=== PATIENT | female | born 1970 | race Caucasian/White ===

== ENCOUNTER 2019-10-14 20:55 | Emergency (ER) | payer BC ==
[~2019-10-14] VITALS: Ht 167.6 cm; Wt 66.2 kg
[2019-10-14 21:36] LABS: URINE BILIRUBIN NEGATIVE (Negative); URINE BLOOD 1+ (Negative); URINE CLARITY CLEAR; URINE COLOR YELLOW; URINE GLUCOSE-RANDOM NEGATIVE (Negative); URINE KETONES NEGATIVE (Negative); URINE LEUKOCYTES-REFLEX 1+ (Negative); URINE NITRITE-REFLEX NEGATIVE (Negative); URINE PROTEIN NEGATIVE (Negative); URINE SPECIFIC GRAVITY <= 1.005 (1.005-1.030); URINE UROBILINOGEN 0.2 E.U./dl (0.2-1.0)
[2019-10-14 21:47] LABS: BACTERIA-REFLEX 1-9 Few /HPF (None Seen); CASTS None Seen /LPF (None Seen); CRYSTALS None Seen /LPF (None Seen); MUCUS None Seen strn/LPF (None Seen); SQUAMOUS 4-10 Moderate /LPF (0-3)
[2019-10-14 21:48] LABS: URINE RBC 0-2 Rare /HPF (0-2)
[2019-10-14 21:56] LABS: HEMATOCRIT 36.5 % (37.0-47.0); MCH 34.1 pg (26.0-34.0); MCHC 35.6 g/dL (28.0-37.0); MCV 95.7 fL (80.0-100.0); NUCLEATED RBCS 0 /100WBC; PLATELET COUNT* 215 thou/uL (150-400); RBC 3.81 mil/uL (4.20-5.00); RDW-CV 13.1 % (10.5-14.5); WBC 10.7 thou/uL (4.0-11.0)
[2019-10-14 22:04] LABS: CALCIUM 8.1 mg/dL (8.5-10.1); CREATININE 0.8 mg/dL (0.6-1.3); POTASSIUM 3.4 mmol/L (3.5-5.1)
[2019-10-14 22:08] LABS: ALBUMIN 3.3 g/dL (3.4-5.0); TOTAL BILIRUBIN 0.3 mg/dL (<0.1-1.0)
[2019-10-14 22:26] LABS: ABSOLUTE LYMPHOCYTES 0.2 thou/uL (0.8-5.3); ABSOLUTE MONOCYTES 0.6 thou/uL (0.0-1.2); ABSOLUTE NEUTROPHILS 9.8 thou/uL (1.6-8.1)
[2019-10-14 22:27] LABS: PLATELET ESTIMATE ADEQUATE
[2019-10-14] MEDS ORDERED: LEVAQUIN 500 M500 M8 PO (22:30)
[2019-10-14 23:07] VITALS: BP 109/66
== END 2019-10-14 23:08 | disposition home or self-care (01) ==
LOC: M.ERS 20:55
PROVIDERS: Personal Emergency Response Attendant
DX: N39.0 Urinary tract infection, site not specified (principal); Z98.890 Other specified postprocedural states

== ENCOUNTER 2019-10-15 13:08 | Inpatient (IN) | payer BC ==
[~2019-10-15] VITALS: Ht 167.6 cm; Wt 66.7 kg
[~2019-10-15 13:08] MED LIST: LEVAQUIN 500 M500 M8 PO
[2019-10-15 13:19] VITALS: BP 146/99
[2019-10-15 13:33] LABS: ABSOLUTE BASOPHILS 0.1 thou/uL (0.0-0.2); ABSOLUTE LYMPHOCYTES 1.2 thou/uL (0.8-5.3); ABSOLUTE MONOCYTES 0.8 thou/uL (0.0-1.2); ABSOLUTE NEUTROPHILS 10.6 thou/uL (1.6-8.1); BASOPHILS 0.4 %; EOSINOPHILS 0.1 %; HEMATOCRIT 38.1 % (37.0-47.0); HEMOGLOBIN 13.2 gm/dL (12.0-15.0); LYMPHOCYTES 9.5 %; MCH 33.9 pg (26.0-34.0); MCHC 34.7 g/dL (28.0-37.0); MCV 97.7 fL (80.0-100.0); MONOCYTES 6.5 %; MPV 8.2 fl. (7.2-11.1); NUCLEATED RBCS 0 /100WBC; PLATELET COUNT* 243 thou/uL (150-400); POLYS 83.5 %; RBC 3.89 mil/uL (4.20-5.00); RDW-CV 13.3 % (10.5-14.5); WBC 12.7 thou/uL (4.0-11.0)
[2019-10-15 13:41] LABS: CALCIUM 8.6 mg/dL (8.5-10.1); CREATININE 0.7 mg/dL (0.6-1.3); POTASSIUM 3.7 mmol/L (3.5-5.1)
[2019-10-15 13:46] LABS: ALBUMIN 3.3 g/dL (3.4-5.0); TOTAL BILIRUBIN 0.4 mg/dL (<0.1-1.0); TOTAL PROTEIN 7.3 g/dL (6.4-8.2)
[2019-10-15 14:17] LABS: URINE BILIRUBIN NEGATIVE (Negative); URINE BLOOD TRACE (Negative); URINE CLARITY CLEAR; URINE COLOR YELLOW; URINE GLUCOSE-RANDOM NEGATIVE (Negative); URINE KETONES 1+ (Negative); URINE LEUKOCYTES-REFLEX 1+ (Negative); URINE NITRITE-REFLEX NEGATIVE (Negative); URINE PROTEIN NEGATIVE (Negative); URINE UROBILINOGEN 0.2 E.U./dl (0.2-1.0)
[2019-10-15 14:27] LABS: CASTS None Seen /LPF (None Seen); CRYSTALS None Seen /LPF (None Seen); MUCUS None Seen strn/LPF (None Seen); SQUAMOUS 4-10 Moderate /LPF (0-3); URINE RBC 0-2 Rare /HPF (0-2); URINE WBC-REFLEX 6-15 Few /HPF (0-5)
[2019-10-15 15:12] VITALS: BP 127/82
[2019-10-15 16:00] VITALS: BP 116/73
[2019-10-15 21:00] VITALS: BP 114/81
[2019-10-16 03:51] LABS: ABSOLUTE EOSINOPHILS 0.1 thou/uL (0.0-0.7); ABSOLUTE LYMPHOCYTES 0.8 thou/uL (0.8-5.3); ABSOLUTE MONOCYTES 0.8 thou/uL (0.0-1.2); ABSOLUTE NEUTROPHILS 7.1 thou/uL (1.6-8.1); BASOPHILS 0.3 %; EOSINOPHILS 0.6 %; HEMATOCRIT 33.3 % (37.0-47.0); HEMOGLOBIN 11.8 gm/dL (12.0-15.0); LYMPHOCYTES 8.9 %; MCH 34.5 pg (26.0-34.0); MCHC 35.5 g/dL (28.0-37.0); MCV 97.3 fL (80.0-100.0); MONOCYTES 9.4 %; MPV 8.6 fl. (7.2-11.1); NUCLEATED RBCS 0 /100WBC; PLATELET COUNT* 190 thou/uL (150-400); POLYS 80.8 %; RBC 3.43 mil/uL (4.20-5.00); RDW-CV 13.1 % (10.5-14.5); WBC 8.8 thou/uL (4.0-11.0)
[2019-10-16 04:04] LABS: CALCIUM 7.2 mg/dL (8.5-10.1); CREATININE 0.7 mg/dL (0.6-1.3); POTASSIUM 3.5 mmol/L (3.5-5.1)
[2019-10-16 08:00] VITALS: BP 114/75
--- NOTE | 2019-10-16 11:33 | CON ---
[address] [address] CONSULTATION Name: DI SUMMERS Room: [address] IN .R.#: [id number] Admission: 10/15/19 Attend Phys: Garry Humphrey MD Discharge: Date of : 70 Report #: [id number] THIS REPORT FOR: //name// CC: Garry Humphrey [facility] DATE OF SERVICE: 10/15/2019 INFECTIOUS DISEASE CONSULTATION ATTENDING PHYSICIAN: Garry Humphrey MD. REASON FOR EVALUATION: Gram-negative septicemia secondary to complicated genitourinary tract infection. HISTORY OF PRESENT ILLNESS: Chart reviewed, patient examined. This is a 49-year-old woman with significant medical history who from time to time has urinary tract infections, although has been roughly 2 years. Earlier this week had developed abdominal pain associated with dysuria. Subsequently, developed fever and chills and some left flank pain was exacerbated. She presented to the Emergency Room. Urinalysis did show moderate pyuria. Lactic acid was in the normal range. Blood cultures collected at time of admission, now 1 out of 2 with growth of gram-negative rods. She was empirically placed on antimicrobial therapy with Zosyn. At this point, she does feel slightly better, although she suspects fevers going to go back up later today. ALLERGIES: None known. MEDICATIONS: Include pantoprazole, enoxaparin, Zosyn, hydralazine, ondansetron as needed, acetaminophen. PAST MEDICAL HISTORY: x 2. SOCIAL HISTORY: Nonsmoker, occasional ethanol, no illicit drug use. FAMILY HISTORY: Noncontributory. REVIEW OF SYSTEMS: Otherwise, unremarkable. Denies significant gastrointestinal-related complaints. PHYSICAL EXAMINATION: GENERAL: She is alert, cooperative, appropriate, in [id number] distress. She appears flushed. VITAL SIGNS: Temperature most recently 98.3, pulse 95, respirations 18, blood pressure 127/82. SKIN: Warm, dry, [place] [address] CONSULTATION Name: DI SUMMERS Kavya Room: [address]#: [id number] Admission: 10/15/19 Attend Phys: Garry Humphrey MD Discharge: Date of : 70 Report #: [id number] HEENT: Normocephalic. Extraocular muscles intact. NECK: Supple. LUNGS: Generally clear to auscultation bilaterally. HEART: Regular. Borderline tachycardic. I do not appreciate a murmur. ABDOMEN: Not overtly tender in the left flank. There are no overt peritoneal signs. GENITOURINARY AND RECTAL: Deferred. LABORATORY DATA: TSH of 1.883. Urinalysis 6-15 white cells, 10-30 bacteria. Lactic acid 0.9. Electrolytes: Sodium 140, potassium 3.7, chloride 105, bicarbonate is 26, anion gap of 9, BUN and creatinine 5 and 0.7, glucose of 106. Albumin 3.3, total protein 7.3. LFTs unremarkable. CBC: White count of 12.7, H and H 13.2 and 38.1, platelets of 243. Blood cultures described above. ASSESSMENT: Gram-[place] septicemia on the basis of complicated urinary tract infection. She is on broad-spectrum therapy, should give us good gram-negative coverage over the next 24 hours. We will maintain the same. Await those results. I think there is a high likelihood that she will get into a significant nosocomial related infectious complications; however, we will add incentive spirometry. <ELECTRONICALLY SIGNED> By: Lawrence Roach MD 10/16/19 [id number] Roach MD /nt
[2019-10-16 18:09] VITALS: BP 138/86
[2019-10-16 21:30] VITALS: BP 133/88
[2019-10-17 07:40] VITALS: BP 135/93
[2019-10-17 11:36] LABS: ABSOLUTE MONOCYTES 0.6 thou/uL (0.0-1.2); ABSOLUTE NEUTROPHILS 2.9 thou/uL (1.6-8.1); BASOPHILS 0.7 %; EOSINOPHILS 1.1 %; HEMATOCRIT 31.2 % (37.0-47.0); HEMOGLOBIN 10.9 gm/dL (12.0-15.0); LYMPHOCYTES 21.7 %; MCH 33.9 pg (26.0-34.0); MCHC 34.9 g/dL (28.0-37.0); MCV 97.1 fL (80.0-100.0); MONOCYTES 13.2 %; MPV 7.9 fl. (7.2-11.1); NUCLEATED RBCS 0 /100WBC; PLATELET COUNT* 217 thou/uL (150-400); POLYS 63.3 %; RBC 3.21 mil/uL (4.20-5.00); RDW-CV 13.1 % (10.5-14.5); WBC 4.5 thou/uL (4.0-11.0)
[2019-10-17 11:48] LABS: ALBUMIN 2.6 g/dL (3.4-5.0); CALCIUM 8.1 mg/dL (8.5-10.1); CREATININE 0.7 mg/dL (0.6-1.3); POTASSIUM 3.3 mmol/L (3.5-5.1); TOTAL BILIRUBIN 0.1 mg/dL (<0.1-1.0); TOTAL PROTEIN 6.1 g/dL (6.4-8.2)
[2019-10-17 12:00] VITALS: BP 135/93
[2019-10-17] MEDS ORDERED: CEFDINIR300 MG PO (12:02)
== END 2019-10-17 15:45 | disposition home or self-care (01) | DRG 872 ==
LOC: M.ERS 13:08 → M.3W 13:34 → M.TBA-ER 13:34 → M.3W 15:05
PROVIDERS: Physician Assistant; ADMIT Internal Medicine
DX: A41.50 Gram-negative sepsis, unspecified (principal); N12 Tubulo-interstitial nephritis, not specified as acute or chronic; Z72.89 Other problems related to lifestyle; Z79.899 Other long term (current) drug therapy; Z28.21 Immunization not carried out because of patient refusal